=== PATIENT | female | born 1995 ===

== ENCOUNTER 2022-03-18 06:37 | Outpatient (CLI) | payer OTHER, SELFPAY ==
--- NOTE | 2022-03-18 07:15 | CRLHL7_ITS ---
For Patients: As a result of the Century Cures Act, medical imaging exams and procedure reports are released immediately into your electronic medical record. You may view this report before your referring provider. If you have questions, please contact your health care provider. INDICATION: Vaginal cyst on clinical examination. Comparison : None. TECHNIQUE: MRI of the pelvis without and with intravenous gadolinium; precontrast T1 and T2 weighted imaging; T2 haste imaging; postcontrast imaging in coronal, sagittal and axial projections. 15cc Dotarem injected. FINDINGS: A 1.7 x 1.8 x 0.7 cm simple cyst identified in the vagina probably involving the posterior wall. This is slightly to the right of the midline. No enhancement after intravenous injection of gadolinium. No other abnormalities are identified. The uterus and the adnexa are normal. IMPRESSION: A 1.7 x 1.8 x 0.7 cm simple vaginal cyst to the right of the midline most likely involving the posterior vaginal wall. Dictated by Keysha Montemayor MD @ 03/22/2022 9:53:01 AM (Electronically Signed)
== END 2022-03-18 06:38 | disposition home or self-care (01) ==
PROVIDERS: PCP Physician Assistant Medical; Visit Provider Registered Nurse
DX: N89.8 Other specified noninflammatory disorders of vagina (principal)
CPT/HCPCS: 72197; A9575

== ENCOUNTER 2022-07-23 13:20 | Emergency (ER) | payer OTHER, SELFPAY ==
[2022-07-23 13:35] VITALS: BP 121/76; PULSE 68; RESP 18; TEMP 36.4; O2SAT 100; BMI 22.4
--- NOTE | 2022-07-23 13:53 | ED_ITS ---
HPI - Extremity Injury (Lower) General Chief Complaint: Unspecified Complaint, Adult Stated Complaint: Stepped on nail with R foot Time Seen by Provider: 07/23/22 13:27 History of Present Illness HPI Narrative: 26-year-old young woman presenting to the emergency department with significant other with concern of puncture wound to her right foot. She was wearing a boot with what looks like Vibram- type sole as they are rehabilitating [address] year [place] farm house. Apparently stepped on a nail from indoor door trim. Sounds like cleaned it very well straight away and even used alcohol. She is concerned about tetanus status whether not needs update. Unclear how far may have gone into the foot. Reviewing records here and [facility] do not show recent tetanus but able to get into older scanned records ultimately from [place] which shows 11/13/2003 as last apparent DTaP. Related Data Home Medications Medication Instructions Recorded Confirmed No Known Home Medications 03/08/22 03/08/22 Allergies Allergy/AdvReac Type Severity Reaction Status Date / Time Penicillins Allergy Unknown Rash Verified 03/08/22 13:44 Review of Systems Status of ROS: Reports: 6 or more systems reviewed and unremarkable except as noted in History and below [facility] Medical History Heart murmur ?R01.1 - Cardiac murmur, unspecified (ICD-10) History of vitamin D deficiency ?Z86.39 - Personal history of other endocrine, nutritional and metabolic disease (ICD-10) History of depression ?Z86.59 - Personal history of other mental and behavioral disorders (ICD-10) History of chest pain ?Z87.898 - Personal history of other specified conditions (ICD-10) History of abnormal electrocardiography ?Z86.79 - Personal history of other diseases of the circulatory system (ICD- 10) Family History Family/Other Diabetes Mother High blood pressure Social History Narrative: On Depo-Provera for contraception- See Past Records from [facility] [place] Smoking Status: Never smoker Non-prescribed substance use: denies use Exam Narrative: Exam Narrative: Pleasant. NAD. Seated in the bed with boot and sock off of her right foot. Breathing easily. Examination of the right foot shows a puncture wound just proximal to the MTP joint of about the 4th digit on the plantar surface not actively bleeding. There is a fullness also on the dorsal surface of the foot and tender here may indicate deeper puncture. I do not see indication of hematoma/vascular disruption otherwise. Foot has clearly been cleaned. Const: Vital Signs, click to edit/add: Vital Signs - 24 hr 07/23/22 13:35 Temperature 97.5 F L Pulse Rate [Right Pulse Oximeter] 68 Respiratory Rate 18 Blood Pressure [Ri ght Upper Arm] 121/76 Pulse Oximetry 100 Oxygen Delivery Me thod Room Air Documenting provider has reviewed patient's vital signs: yes Course Vital Signs Vital signs: Initial Vital Signs Temperature 97.5 F L 07/23/22 13:35 Temperature Source Temporal Artery Scan 07/23/22 13:35 Pulse Rate 68 07/23/22 13:35 Respiratory Rate 18 07/23/22 13:35 Blood Pressure 121/76 07/23/22 13:35 Blood Pressure Mean 91 07/23/22 13:35 Blood Pressure Position Sitting 07/23/22 13:35 Pulse Oximetry 100 07/23/22 13:35 Oxygen Delivery Method Room Air 07/23/22 13:35 Vital Signs Temperature 97.5 F L 07/23/22 13:35 Pulse Rate 68 07/23/22 13:35 Respiratory Rate 18 07/23/22 13:35 Blood Pressure 121/76 07/23/22 13:35 Pulse Oximetry 100 07/23/22 13:35 Oxygen Delivery Method Room Air 07/23/22 13:35 Temperature 97.5 F L 07/23/22 13:35 Pulse Rate 68 07/23/22 13:35 Respiratory Rate 18 07/23/22 13:35 Blood Pressure 121/76 07/23/22 13:35 Pulse Oximetry 100 07/23/22 13:35 Oxygen Delivery Method Room Air 07/23/22 13:35 MDM - Extremity Injury (Lower) MDM Narrative Medical decision making narrative: I think deep cleaning with attempt at pressure irrigation would be very painful. Probably not necessary though could block at ankle. This, while not an absolutely clean nail was likely not terribly dirty quite unlikely to contain tetanus per her concern. Concern certainly of surface bacterial lary. Does not appear to have a bony injury. Placed bacitracin and Band-Aid. Updated [facility] Medical Records Attestation: I reviewed the patient's medical records. Discharge Plan Discharge Clinical Impression: Puncture wound of foot Patient Disposition: Home, Self-Care Condition: Stable Additional Instructions: Recommending soaking your foot in warm soapy or epsom salt water 2 times daily next few days. Antibiotic ointment and Band-Aid over the next few days. Elevation and ibuprofen for comfort. Watch for spreading redness after 2 days, especially accompanied by heat, swelling, marked increase in pain, purulent drainage. This point I would be seen. Prescriptions: No Action No Known Home Medications Follow Up/Referrals: Kelsy Packer PA-C [Primary Care Provider] - Stand Alone Forms: [facility] Info Instructions
[2022-07-23] MEDS: TETANUS/DIPHTH/PERTUSSIS 0.5 ML SYRINGE IM (14:26)
== END 2022-07-23 14:40 | disposition home or self-care (01) ==
LOC: ED 14:38
PROVIDERS: Emergency Provider Family Medicine; PCP Physician Assistant Medical
DX: S91.331A Puncture wound without foreign body, right foot, initial encounter (principal); W22.8XXA Striking against or struck by other objects, initial encounter
CPT/HCPCS: 90471; 90715; 96372; 99283; 99284

== ENCOUNTER 2024-07-05 07:28 | Outpatient (RCR) | payer BC, SELFPAY | END 2024-11-02 23:59 | disposition home or self-care (01) | PROVIDERS: Visit Provider Student in an Organized Health Care Education/Training Program | DX: S86.911D Strain of unspecified muscle(s) and tendon(s) at lower leg level, right leg, subsequent encounter (principal); Z51.89 Encounter for other specified aftercare | CPT/HCPCS: 97110; 97161 ==